=== PATIENT | female | born 2000 | race Caucasian/White ===

== ENCOUNTER 2021-07-23 12:15 | Emergency (ER) | payer BC, SELFPAY ==
--- NOTE | ~2021-07-23 | XR_ITS ---
EXAMINATION: XR chest 1V portable DATE: 07/23/2021 13:05 INDICATION: Cough and sore throat TECHNIQUE: frontal view of the chest was obtained. COMPARISON: None FINDINGS: The lungs are clear with no focal airspace opacities, pulmonary edema, pleural effusion or pneumothor ax. The cardiomediastinal silhouette is normal. Visualized bones and soft tissues are unremarkable. IMPRESSION: 1. No acute cardiopulmonary disease. Reviewed, dictated and finalized at location B.
[2021-07-23 12:29] VITALS: BP 120/72; PULSE 140; RESP 20; TEMP 36.7; O2SAT 98
--- NOTE | 2021-07-23 12:57 | ED.URI ---
HPI - URI/Sore Throat General Chief Complaint: Upper Respiratory Infection Stated Complaint: Tonsil stones Time Seen by Provider: 07/23/21 12:57 Source: patient Mode of arrival: ambulatory Limitations: no limitations History of Present Illness HPI Narrative: The patient is a 21-year-old female that presents for evaluation of sore throat. Patient with subjective fever and chills overnight. No nausea or vomiting. Reports burning sensation in her throat. Patient was into her throat and was concerned that she may have a tonsil stone. She denies history of tonsil stones in the past. No recent sick contacts. She does report mild rhinorrhea. She denies cough or shortness of breath. No swollen lymph nodes in her neck. Patient is tolerating oral intake without differential. No rashes. No abdominal pain, nausea, vomiting or diarrhea. No loss of sense of taste or smell. Patient reports mild congestion. Related Data Allergies Allergy/AdvReac Type Severity Reaction Status Date / Time No Known Allergies Allergy Unknown Unverified 07/23/21 12:51 Review of Systems Review of Systems: CONSTITUTIONAL: Reports fever and chills EYES: Denies visual changes, redness, or discharge. ENT: Reports rhinorrhea, congestion, sore throat CARDIOVASCULAR: Denies chest pain, reports palpitations RESPIRATORY: Denies cough or dyspnea. GASTROINTESTINAL: Denies abdominal pain, nausea, vomiting, or diarrhea. GENITOURINARY: Denies dysuria or hematuria. SKIN: Denies rash or itching. MUSCULOSKELETAL: Denies back pain, joint pain, or myalgia. NEUROLOGIC: Denies headache, numbness, or weakness. PSYCH: Reports anxiety PMFSH Social History Social History (Updated 07/23/21 @ 13:13 by Kamla Fortune MD) Smoking status: Never smoker Alcohol intake: never Substance use: never Occupation/Education: student Gender identity (if verbalized by the patient): Female Exam Narrative: GENERAL: Awake, alert, conversant, tearful HEAD: Normocephalic, atraumatic. EYES: PERRLA and EOMI. ENT: Nares clear, no rhinorrhea. Uvula is midline, slight erythema. Erythema and ulcerations in the posterior oropharynx, greater on the left palatine tonsil when compared to the right. No trismus. No tongue edema. Airway is patent. NECK: Supple. No submandibular or cervical lymphadenopathy. CHEST: No respiratory distress, breathing even and non labored HEART: Tachycardic rate, sinus rhythm ABDOMEN:Non distended, non tender EXTREMITIES: Normal range of motion. No edema. SKIN: Warm, dry, no rash. NEURO:No focal deficits. Alert and oriented x3 Course Vital Signs Vital signs: Vital Signs Temperature 36.7 C 07/23/21 12:29 Pulse Rate 140 H 07/23/21 12:29 Respiratory Rate 20 07/23/21 12:29 Blood Pressure 120/72 07/23/21 12:29 Pulse Oximetry 98 07/23/21 12:29 Temperature 36.7 C 07/23/21 12:29 Pulse Rate 102 H 07/23/21 15:58 Respiratory Rate 15 07/23/21 15:58 Blood Pressure 114/76 07/23/21 15:58 Pulse Oximetry 98 07/23/21 15:58 MDM - URI/Sore Throat MDM Narrative Medical decision making narrative: Patient presenting for evaluation of sore throat, ulcerations and throat. Patient is quite tachycardic at the time of assessment but is tearful and quite anxious. She is afebrile. Laboratory studies are notable for mild leukocytosis. Mild anemia. No electrolyte derangement. Patient strep culture is negative. We will swab for Covid. Based on ulcerations and posterior oropharynx, diagnosis seems most consistent with herpangina, likely viral such as coxsackie. No hand or foot involvement. Patient without signs of severe sepsis or septic shock. Patient is tolerating oral intake and has no airway compromise. Patient was discharged home in stable condition after receiving IV fluids and Decadron. Tachycardia improved at the time of assessment. Patient discharged home with Magic mouthwash, supportive care, advised to take ibuprofen and Tylenol
[2021-07-23] MEDS: SODIUM CHLORIDE 0.9% IV 1,000 ML 999 ML IV CONT (13:26)
[2021-07-23] MEDS: ACETAMINOPHEN 500 MG TABLET 1000 MG PO (13:27)
[2021-07-23 13:33] VITALS: BP 115/75; PULSE 118; RESP 15; O2SAT 100
[2021-07-23 13:37] LABS: Basophils Percent Auto 0.3 % (0.2-1.2); Eosinophils Percent Auto 0.2 % (0-4.4); Hematocrit 37.9 % (37.0-47.0); Hemoglobin 11.8 g/dL (12.0-15.0); Immature Granulocyte Absolute 0.03 K/mm3 (0.00-0.031); Immature Granulocyte Percent A 0.3 % (0-0.5); Lymphocytes Absolute Auto 1.16 K/mm3 (0.9-3.2); Lymphocytes Percent Auto 10.3 % (18.3-44.2); Mean Corpuscular HGB Conc 31.1 g/dl (32-36); Mean Corpuscular Hemoglobin 26.8 pg (26-34); Mean Corpuscular Volume 85.9 fl (80-100); Mean Platelet Volume 11.4 fl (7.4-10.4); Monocytes Absolute Auto 1.1 K/mm3 (0.1-0.6); Monocytes Percent Auto 9.9 % (2.6-8.5); Neutrophils Absolute Auto 8.9 K/mm3 (1.3-6.7); Platelet Count Result 191 k/mm3 (150-375); Red Blood Count 4.41 M/mm3 (4.2-5.4); Red Cell Distribution Width 14.7 % (11.5-14.5); White Blood Count 11.3 K/mm3 (4.5-10.0)
[2021-07-23 13:49] LABS: Alanine Aminotransferase 11 U/L (4-35); Albumin Level 4.6 g/dL (3.5-5.1); Alkaline Phosphatase 67 U/L (38-126); Anion Gap 12 mmol/L (8-16); Aspartate Amino Transferase 19 U/L (14-36); Bilirubin,Total 0.4 mg/dL (0.2-1.3); Blood Urea Nitrogen 8 mg/dL (7-17); Calcium 9.2 mg/dL (8.4-10.2); Carbon Dioxide 21 mmol/L (22-30); Chloride 101 mmol/L (98-107); Estimated CRCL calculation 103 ml/min; Estimated Glomerular Filt Rate > 60; Glucose 98 mg/dL (65-110); Potassium 3.8 mmol/L (3.4-5.0); Sodium 134 mmol/L (137-145)
[2021-07-23] MEDS: KETOROLAC 15 MG/ML VIAL (*BKC) IV PUSH (13:54)
[2021-07-23 15:58] VITALS: BP 114/76; PULSE 102; RESP 15; O2SAT 98
[2021-07-24 20:01] LABS: SARS-CoV-2 RNA PCR Negative
== END 2021-07-23 16:06 | disposition home or self-care (01) ==
PROVIDERS: Emergency Provider Emergency Medicine
DX: B08.5 Enteroviral vesicular pharyngitis (principal); Z20.822 Contact with and (suspected) exposure to COVID-19
CPT/HCPCS: 36415; 71045; 80053; 85025; 87081; 87880; 96361; 96374; 96375; 99284; A9270; C9803; J1100; J1885; J7030; U0003; U0005